=== PATIENT | male | born 1990 ===

== ENCOUNTER 2024-11-03 11:45 | Emergency (ER) | payer MEDICAID, SELFPAY ==
[2024-11-03 11:56] VITALS: BP 122/84; PULSE 91; RESP 18; TEMP 36.9; O2SAT 98; BMI 19.3
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
[2024-11-03] MEDS: IBUPROFEN TAB 400 MG TABLET 800 MG PO (13:53)
[2024-11-03] MEDS: AMOXICILLIN/POT CLAV 875 TABLET 1 TAB PO (13:54)
== END 2024-11-03 14:05 | disposition home or self-care (01) ==
PROVIDERS: Emergency Provider Family Medicine
DX: S00.83XA Contusion of other part of head, initial encounter (principal); H66.91 Otitis media, unspecified, right ear; Y09 Assault by unspecified means; Z59.00 Homelessness unspecified
CPT/HCPCS: 70450; 70480; 72125; 99284; A9270